=== PATIENT | female | born 1995 | race Caucasian/White ===

== ENCOUNTER 2022-10-02 05:45 | Inpatient (IN) | payer OTHER ==
--- NOTE | 2022-10-01 19:19 | P.HPOB ---
History of Present Illness H&P Date: 10/01/22 Chief Complaint: Herpes outbreak at term This is a 27 y.o. female, 2, para 0, with an estimated date of confinement of 10/01/2022, estimated gestational age of 40-1/7 weeks who presents for primary section due to active herpes outbreak despite suppression treatment. She states she had an outbreak that started 09/28/2022 and feels like it is starting to clear. She has been taking her Valtrex for suppression and increased to twice daily when she had the outbreak. She is having irregular contractions and pressure. She has been followed by MFM throughout this due to short cervix noted on 19 week ultrasound and marginal cord insertion. She was placed on vaginal progesterone up until 36 weeks. She was admitted and given Betamethasone and Indocin at 24 weeks. labs: Hepatitis B surface antigen-neg RPR-NR Rubella-immune Blood type-A neg Antibody screen-neg Hemoglobin-13.2 Toxoplasma-neg Hepatitis C-neg Random glucose-80 1 hr. glucola-133 3 hr. GTT-WNL Rhogam given at 28 weeks GBS-neg OB Hx: . History of 1 termination of . School Attendance Secretary Hx: History of genital herpes, outbreaks generally 2-3 times/year. Social Hx: Single. Works at [employer], sales representative door to door. Review of Systems Constitutional: Denies chills, Denies fever Eyes: denies blurred vision, denies pain Ears, nose, mouth and throat: Denies headache, Denies sore throat Cardiovascular: Denies chest pain, Denies shortness of breath Respiratory: Denies cough Gastrointestinal: Reports abdominal pain (irregular contractions) Genitourinary: Reports pelvic pain, Reports Musculoskeletal: Reports low back pain Integumentary: Denies pruritus, Denies rash Neurological: Denies numbness, Denies weakness Psychiatric: Denies anxiety, Denies depression Past Medical History Past Medical History: No Reported History History of Any Multi-Drug Resistant Organisms: None Reported Past Surgical History: Adenoidectomy, Tonsillectomy Additional Past Surgical History / Comment(s): bone grafting jaw Past Anesthesia/Blood Transfusion Reactions: No Reported Reaction Past Psychological History: No Psychological Hx Reported Smoking Status: Former smoker Past Alcohol Use History: None Reported Past Drug Use History: None Reported - Past Family History Mother History Unknown: Yes Medications and Allergies Home Medications Medication Instructions Recorded Confirmed Type Vit No.179/Iron/Folic 1 each PO DAILY 10/01/22 10/02/22 History [ Tablet] valACYclovir HCL [Valacyclovir] 500 mg PO BID 10/02/22 10/02/22 History Allergies Allergy/AdvReac Type Severity Reaction Status Date / Time sulfamethoxazole Allergy Intermediate Rash/Hives Verified 10/02/22 05:59 [From Bactrim] trimethoprim [From Bactrim] Allergy Intermediate Rash/Hives Verified 10/02/22 05:59 Exam Osteopathic Statement: *. No significant issues noted on an osteopathic structural exam other than those noted in the History and Physical/Consult. HEENT: within normal limits Heart: regular rate and rhythm Lungs: clear to auscultation bilaterally Abdomen: , non-tender Cervix: 3 cm/100%/-1 heart tones: 140's by doppler Extremities: neg. Kvng's Results Result Diagrams: 10/02/22 06:00 Assessment and Plan (1) 40 weeks gestation of Current Visit: No Status: Acute Code(s): Z3A.40 - 40 WEEKS GESTATION OF SNOMED Code(s): 49720468 (2) Herpes, genital Current Visit: No Status: Acute Code(s): A60.00 - HERPESVIRAL INFECTION OF UROGENITAL SYSTEM, UNSPECIFIED SNOMED Code(s): 67525367 (3) Short cervix during in third trimester Current Visit: No Status: Acute Code(s): O26.873 - CERVICAL SHORTENING, THIRD TRIMESTER SNOMED Code(s): 050446404 Plan: Proceed with primary low transverse section. I have discussed the risks, benefits, and alternative therapies for the above- mentioned procedure and for both sedation/anesthesia as well as necessary blood products administration, if indicated, as they pertain to this patient. The patient has indicated her understanding and acceptance of the risks and procedures discussed.
[2022-10-02] MEDS ORDERED: LACTATED RINGERS 1,000 ML IV ONE (06:00)
[2022-10-02] MEDS ORDERED: OXYTOCIN 30 UNITS/500 ML NS 30 UNIT in SALINE 1 500ML.BAG IV SCH (06:00)
[2022-10-02] MEDS ORDERED: CARBOPROST TROMETHAMINE 250 MCG/ML 1 ML AMP IM PRN (06:00)
[2022-10-02] MEDS ORDERED: CITRIC ACID-SODIUM CITRATE 15 ML CUP PO ONE (06:00)
[2022-10-02] MEDS ORDERED: METHYLERGONOVINE 0.2 MG/ML 1 ML AMP IM PRN (06:00)
[2022-10-02] MEDS ORDERED: TRANEXAMIC ACID IN NACL,ISO-OS 1,000 MG in EMPTY BAG 1 BAG IV PRN (06:00)
[2022-10-02] MEDS ORDERED: OXYTOCIN 10 UNIT/ML 1 ML VIAL IM PRN (06:00)
[2022-10-02] MEDS ORDERED: LIDOCAINE 1% (10MG/ML) FOR IV START INTRADERMA PRN (06:00)
[2022-10-02] MEDS ORDERED: miSOPROStoL 200 MCG TAB PO PRN (06:00)
[2022-10-02 06:22] LABS: Basophils % (A) 0 %; Eosinophils # (A) 0.1 k/uL (0-0.7); Eosinophils % (A) 2 %; HCT 35.8 % (34.0-46.0); HGB 11.9 gm/dL (11.4-16.0); Lymphocytes # (A) 1.6 k/uL (1.0-4.8); Lymphocytes % (A) 22 %; MCH 31.6 pg (25.0-35.0); MCHC 33.3 g/dL (31.0-37.0); MCV 94.7 fL (80.0-100.0); Mean Platelet Volume 8.4; Monocytes # (A) 0.4 k/uL (0-1.0); Monocytes % (A) 6 %; Neutrophils # (A) 4.8 k/uL (1.3-7.7); Neutrophils % (A) 68 %; Platelet Count 198 k/uL (150-450); RBC 3.78 m/uL (3.80-5.40); RDW 13.3 % (11.5-15.5); WBC 7.1 k/uL (3.8-10.6)
[2022-10-02] MEDS ORDERED: ONDANSETRON 4 MG/2 ML VIAL ONE (07:58)
[2022-10-02] MEDS ORDERED: NALBUPHINE 10 MG/ML (10 ML MDV) ONE (07:58)
[2022-10-02] MEDS ORDERED: MORPHINE SULFATE (PF) 0.3 MG/0.3 ML SYR ONE (07:58)
[2022-10-02] MEDS ORDERED: OXYTOCIN 30 UNITS/500 ML NS BAG IV ONE (07:58)
[2022-10-02] MEDS ORDERED: KETOROLAC 15 MG/ML 1 ML VIAL ONE (07:58)
--- NOTE | 2022-10-02 08:45 | P.OP ---
Date of Procedure: 10/02/22 Preoperative Diagnosis: 1. Intrauterine at 40 and one sevenths weeks. 2. Active herpes outbreak. Postoperative Diagnosis: Same Procedure(s) Performed: Primary low transverse section Anesthesia: HALIMA Surgeon: Blanquita Ford Dispatcher Service Or Work #1: Yashira Washington Estimated Blood Loss (ml): 260 Pathology: other (Placenta) Condition: stable Disposition: floor Indications for Procedure: This is a 27-year-old female 2 para 0 at 40 and one sevenths weeks who presented for primary section due to active herpes outbreak. She was found to be 3 cm dilated in the office with irregular contractions and did have a herpes outbreak within the last few days. For the safety of the baby, the decision was made to proceed with primary section. I have discussed the risks, benefits, and alternative therapies for the above-mentioned procedure and for both sedation/anesthesia as well as necessary blood products administration, if indicated, as they pertain to this patient. The patient has indicated her understanding and acceptance of the risks and procedures discussed. Operative Findings: a viable male is noted in the vertex presentation with scores of 8 at 1 minute and 9 at 5 minutes and infant weight of 7 lbs. 4 oz. Normal uterus tubes and ovaries are noted. Description of Procedure: The patient is taken to the operating room where she is placed in the dorsal supine position with leftward tilt after spinal Duramorph anesthesia is given. She is prepped and draped in the normal sterile fashion. Skin was tested and found to be adequately anesthetized. A Pfannenstiel skin incision was made with a scalpel. A second knife was used to carry the incision down to the underlying layer of fascia. The fascia was nicked in the midline with a scalpel and then extended laterally bilaterally with Seals scissors. The anterior lip of the fascia was grasped with 2 Arnold clamps and then dissected off the underlying rectus muscle in the midline with Seals scissors. The inferior aspect of the fascial incision was grasped with 2 Arnold clamps and dissected off the underlying rectus muscle and the midline with Seals scissors. Next the peritoneum layer was tented up with 2 hemostats and then entered sharply with the scalpel. The incision is extended superiorly and inferiorly with Metzenbaum scissors. Next a DeLee retractor is placed. The vesicouterine peritoneum is entered sharply with Metzenbaum scissors and extended laterally bilaterally with Metzenbaum scissors and then the bladder flap is pushed inferiorly. The lower uterine segment is incised in transverse fashion with the scalpel and then bluntly entered with a hemostat. Clear fluid is noted. The incision was then extended laterally bilaterally with 2 fingers. Next the 's head is delivered through the incision. Nose and mouth are bulb suctioned. The remainder of the is easily delivered and placed on mother's abdomen. Cord is clamped and cut. Infant is taken to warmer by nursing staff. Cord blood was obtained secondary to Rh- status.Uterine fundus is gently massaged and placenta is delivered manually. Uterus is exteriorized and cleared of all clots and debris. Uterine incision is closed with 0 Vicryl suture in a running locked fashion. A second layer of 0 Vicryl suture is used in a running fashion for hemostasis. Once adequate hemostasis as assured, the vesicouterine peritoneum is reapproximated with 2-0 Vicryl suture in a running fashion. Posterior cul-de-sac is suctioned of all clots and debris. Uterus is returned to the abdomen. Incision is noted to be hemostatic. Peritoneal layer is closed with 0 Vicryl suture in a running fashion. Muscle layer is reapproximated with 0 Vicryl suture in interrupted fashion. Fascia layer is then closed with 0 PDS suture with 2 sutures meeting in the midline and the knots buried in either side and in the midline. The subcutaneous tissue was then closed with 2-0 Vicryl suture. Skin layer was then closed with hilda. All sponge and needle counts are correct. The patient is taken to recovery room in stable condition.
[2022-10-02] MEDS ORDERED: diphenhydrAMINE 25 MG CAP PO PRN (13:53)
[2022-10-02] MEDS ORDERED: diphenhydrAMINE 50 MG/ML 1 ML VIAL IVP PRN ×2 (13:53)
[2022-10-02] MEDS ORDERED: NALOXONE 0.4 MG/ML 1 ML VIAL IV PRN (13:53)
[2022-10-02] MEDS ORDERED: diphenhydrAMINE 50 MG CAP PO PRN (13:53)
[2022-10-02] MEDS ORDERED: ONDANSETRON 4 MG/2 ML VIAL IVP PRN (13:53)
[2022-10-02] MEDS ORDERED: ZOLPIDEM 5 MG TAB PO PRN (13:53)
[2022-10-02] MEDS ORDERED: METOCLOPRAMIDE 5 MG/ML 2 ML VIAL IVP PRN (13:53)
[2022-10-02] MEDS: IBUPROFEN 600 MG TAB PO SCH ×2 (16:07→21:44)
[2022-10-02] MEDS: LACTATED RINGERS 1,000 ML IV SCH ×4 (18:42→22:22)
[2022-10-02] MEDS: ACETAMINOPHEN TAB 500 MG TAB PO SCH (18:47)
[2022-10-02] MEDS: SENNOSIDES-DOCUSATE SODIUM 1 EACH TAB PO SCH (21:45)
[2022-10-03] MEDS: ACETAMINOPHEN TAB 500 MG TAB PO SCH ×4 (01:02→18:36)
[2022-10-03] MEDS: IBUPROFEN 600 MG TAB PO SCH ×4 (03:29→22:33)
[2022-10-03 07:18] LABS: Basophils % (A) 0 %; Eosinophils # (A) 0.1 k/uL (0-0.7); Eosinophils % (A) 1 %; HCT 33.1 % (34.0-46.0); Lymphocytes # (A) 1.3 k/uL (1.0-4.8); Lymphocytes % (A) 15 %; MCH 31.7 pg (25.0-35.0); MCHC 33.3 g/dL (31.0-37.0); MCV 95.2 fL (80.0-100.0); Mean Platelet Volume 8.5; Monocytes # (A) 0.5 k/uL (0-1.0); Monocytes % (A) 5 %; Neutrophils # (A) 6.7 k/uL (1.3-7.7); Neutrophils % (A) 78 %; Platelet Count 171 k/uL (150-450); RBC 3.48 m/uL (3.80-5.40); RDW 13.3 % (11.5-15.5); WBC 8.7 k/uL (3.8-10.6)
[2022-10-03] MEDS: SENNOSIDES-DOCUSATE SODIUM 1 EACH TAB PO SCH ×2 (08:21→22:35)
--- NOTE | 2022-10-03 08:30 | P.PNOBGPC ---
Subjective - Subjective Principal diagnosis: Status post primary postoperative day #1 Interval history: Patient is doing well. She is breast-feeding. Lochia is decreasing. Pain is fairly well controlled. She is passing flatus but no bowel yet. Patient reports: Reports appetite normal, Reports voiding normally, Reports pain well controlled, Reports ambulating normally Marlin: doing well, nursing well Objective - Vital Signs Latest vital signs: Vital Signs Temp Pulse Resp BP Pulse Ox 10/03/22 03:30 98 F 55 L 18 85/54 98 10/03/22 00:00 98.3 F 89 16 97/53 10/02/22 19:42 98 F 65 18 114/72 98 10/02/22 16:00 98.5 F 72 15 94/57 96 10/02/22 11:45 97.3 F L 68 16 108/66 10/02/22 10:51 76 16 116/82 100 10/02/22 10:21 54 L 16 111/82 100 10/02/22 09:51 55 L 16 113/82 100 10/02/22 09:36 55 L 16 111/56 100 10/02/22 09:21 61 16 108/54 100 10/02/22 09:06 65 16 102/59 10/02/22 08:51 97.3 F L 69 16 111/60 99 Intake and Output 10/02/22 10/03/22 10/03/22 22:59 06:59 14:59 Intake Total 200 Output Total 3050 Balance -3050 200 Intake: Oral 200 Output: Urine 3050 Uretheral (Orellana) 800 - Exam Extremities: Present: normal. Absent: tenderness, edema Abdomen: Present: normal appearance, soft (Positive bowel sounds 4). Absent: distention, tenderness Incision: Present: normal, dry, intact. Absent: erythematous Uterus: Present: normal, firm. Absent: tenderness - Labs Labs: Abnormal Lab Results - Last 24 Hours (Table) 10/03/22 Range/Units 06:54 RBC 3.48 L (3.80-5.40) m/uL Hgb 11.0 L (11.4-16.0) gm/dL Hct 33.1 L (34.0-46.0) % Assessment and Plan Assessment: Status post primary low transverse section postoperative day #1 (1) 40 weeks gestation of Current Visit: No Status: Acute Code(s): Z3A.40 - 40 WEEKS GESTATION OF SNOMED Code(s): 59389726 (2) Herpes, genital Current Visit: No Status: Acute Code(s): A60.00 - HERPESVIRAL INFECTION OF UROGENITAL SYSTEM, UNSPECIFIED SNOMED Code(s): 56614716 (3) Short cervix during in third trimester Current Visit: No Status: Acute Code(s): O26.873 - CERVICAL SHORTENING, THIRD TRIMESTER SNOMED Code(s): 130319319 Plan: Continue with postoperative care today. Will advance diet as tolerated. Patient is encouraged to ambulate.
[2022-10-03 08:38] VITALS: RESP 16
--- NOTE | 2022-10-03 16:55 | P.PN ---
Progress Note - Text Date: 10/03/2022 Time: 16:26 The patient is status post section Vital signs stable VAS:[ 0-10] Patient has no complaints of pain. The patient incurred some minimal itching yesterday, this itching is now subsiding. Pain meds to be managed by service.
[2022-10-04] MEDS: ACETAMINOPHEN TAB 500 MG TAB PO SCH ×2 (02:48→09:01)
[2022-10-04] MEDS: IBUPROFEN 600 MG TAB PO SCH ×2 (06:33→12:09)
[2022-10-04] MEDS: SENNOSIDES-DOCUSATE SODIUM 1 EACH TAB PO SCH (09:00)
--- NOTE | 2022-10-04 09:05 | P.DS ---
Providers Date of admission: 10/02/22 05:45 Expected date of discharge: 10/04/22 Attending physician: Blanquita Ford Primary care physician: Stated None - Discharge Diagnosis(es) (1) 40 weeks gestation of Current Visit: No Status: Acute (2) Herpes, genital Current Visit: No Status: Acute (3) Short cervix during in third trimester Current Visit: No Status: Acute Hospital Course: This is a 27-year-old female 2 para 0 at 40 and one sevenths weeks who presented for primary section due to active herpes outbreak. She delivered a viable male infant with scores of 8 at 1 minute and 9 at 5 minutes and infant weight is 7 lbs. 4 oz. Her postoperative and course have been essentially uncomplicated. Her lochia has been decreasing. Her pain is well-controlled as long as she keeps up with her pain medication. She is passing flatus but no bowel movement yet. She is breast-feeding. Vital signs are stable. Abdomen is soft with fundus firm and nontender. Incision is clean dry and intact with hilda in place. A small amount of ecchymosis is noted above the incision in the midline. Extremities show negative Homans. Impression is status post primary low transverse section postoperative day #2. Plan is to discharge home today. Routine postoperative and instructions are given. Kirby will be removed and Steri-Strips placed prior to discharge. She will be given a prescription for ibuprofen 600 mg and oxycodone. She has been counseled regarding opioid use and has signed a consent form. She is advised to call the office if she has any further questions or concerns prior to her appointment time. She is instructed to follow-up in the office in 1 week for postoperative check and in 6 weeks for check. Procedures: Primary low transverse section on 10/02/2022 Patient Condition at Discharge: Stable Plan - Discharge Summary New Discharge Prescriptions: New Ibuprofen [Motrin] 600 mg PO Q6H #60 tab oxyCODONE HCL [OxyIR] 5 mg PO Q6H PRN 3 Days #12 tab PRN Reason: Moderate To Severe Pain (4-10) Continue Vit No.179/Iron/Folic [ Tablet] 1 each PO DAILY valACYclovir HCL [Valacyclovir] 500 mg PO BID Discharge Medication List Vit No.179/Iron/Folic [ Tablet] 1 each PO DAILY 10/01/22 [History] valACYclovir HCL [Valacyclovir] 500 mg PO BID 10/02/22 [History] Ibuprofen [Motrin] 600 mg PO Q6H #60 tab 10/04/22 [Rx] oxyCODONE HCL [OxyIR] 5 mg PO Q6H PRN 3 Days #12 tab 10/04/22 [Rx] Follow up Appointment(s)/Referral(s): Blanquita Ford DO [Doctor of Osteopathic Medicine] - 1 Week (PO 10-11-2022 @1:30 Pm [id number] @11:15 Am) Activity/Diet/Wound Care/Special Instructions: Instructions 1. Do not begin any exercise program for 3 weeks. 2. Do not resume sexual relations for 3 weeks or longer if uncomfortable. 3. You may take tub baths or showers at any time. 4. You may use tampons if desired after 3 weeks. 5. Keep the area of episiotomy (stitches) clean and dry. 6. If you are not nursing, wear a good fitting, supportive bra during the day and limit fluid intake for at least 1 week to prevent breast engorgement. 7. Call the office, [phone], within the next week to make appointment for your 6 week checkup if it has not already been made. 8. Report any of the following occurrences to the doctor promptly: a. Heavy, excessive bleeding b. Chills, fever c. Burning or frequency of urination d. Pain or redness and breasts if nursing e. Increasing pain or swelling in episiotomy (stitches). In addition to the above instructions, the following additional should be followed: 1. No heavy lifting or straining (exercising) until after 6 week checkup. 2. Keep abdominal incision clean and dry: You may wear a dressing if more comfortable. 3. Make office appointment for 10 days after going home or as instructed by her doctor. Discharge Disposition: HOME SELF-CARE
[2022-10-04 09:48] VITALS: BP 114/64; PULSE 88; TEMP 97.6
== END 2022-10-04 12:45 | disposition home or self-care (01) | DRG 540 ==
LOC: 4FBP 05:45
PROVIDERS: ADMIT Obstetrics & Gynecology; ATTEND Obstetrics & Gynecology
PROC: 10D00Z1 Extraction of Products of Conception, Low, Open Approach (ICD-10-PCS; principal; 2022-10-02 08:02)
DX: O98.32 Other infections with a predominantly sexual mode of transmission complicating childbirth (principal); O26.873 Cervical shortening, third trimester; O43.193 Other malformation of placenta, third trimester; O48.0 Post-term pregnancy; A60.09 Herpesviral infection of other urogenital tract; L29.9 Pruritus, unspecified; O99.73 Diseases of the skin and subcutaneous tissue complicating the puerperium; O26.893 Other specified pregnancy related conditions, third trimester; Z3A.40 40 weeks gestation of pregnancy; Z87.891 Personal history of nicotine dependence; Z37.0 Single live birth; Z88.2 Allergy status to sulfonamides; Z88.8 Allergy status to other drugs, medicaments and biological substances; Z67.41 Type O blood, Rh negative
CPT/HCPCS: 85025; 86850; 86870; 86880; 86900; 86901